=== PATIENT | female | born 1970 | race Caucasian/White ===

== ENCOUNTER 2016-10-12 15:04 | Emergency (ER) ==
[2016-10-12 15:34] LABS: MANUAL DIFF NEEDED? NO; URINE MICRO REVIEW NEEDED? NO; URINE SOURCE CLEAN CATCH
[2016-10-12 15:38] LABS: BASO% 1.5 % (0.0-0.8); BILIRUBIN URINE NEGATIVE (NEGATIVE); BLOOD URINE SMALL (NEGATIVE); COLOR YELLOW; EOS# 0.13 X1000 (0.0-0.7); EOS% 1.5 % (0.0-10.0); GLUCOSE URINE NEGATIVE (NEGATIVE); HEMATOCRIT 38.5 % (37.0-47.0); IMM GRAN# 0.02 X1000 (0.0-0.04); IMM GRAN% 0.2 % (0.0-0.5); LEUKOCYTES URINE LARGE (NEGATIVE); LYMPH# 1.86 X1000 (1.2-3.4); LYMPH% 20.9 % (20.5-51.1); MCH 29.7 PG (27-31); MCHC 33.8 g/dL (33-37); MCV 87.9 FL (81-99); MONO# 0.53 X1000 (0.11-0.59); MPV 10.9 FL (7.4-10.4); NEUT% 69.9 % (42.2-75.2); NITRITE URINE NEGATIVE (NEGATIVE); PH URINE 6.5; PLT 444 X1000 (130-400); PROTEIN URINE NEGATIVE (NEGATIVE); RBC 4.38 XMIL (4.2-5.4); SP GRAVITY URINE 1.005; TURBIDITY URINE HAZY (CLEAR); UROBILINOGEN URINE NORMAL (NORMAL)
[2016-10-12 15:42] LABS: UR EPITHELIAL CELLS <10 /HPF (<10); URINE BACTERIA 4+ /HPF; URINE CULTURE NEEDED? YES; URINE RBC <10 /HPF (<10)
[2016-10-12 16:11] LABS: AGAP 12; ALBUMIN 4.6 g/dL (3.5-5.0); ALKALINE PHOSPHATASE 66 U/L (32-104); AMYLASE 33 U/L (20-200); BUN 12 mg/dL (8-22); CALCIUM 9.3 mg/dL (8.8-10.2); CHLORIDE 102 mmol/L (98-107); COSMO 275; GOT 32 U/L (10-30); GPT 33 U/L (10-36); LIPASE 35 U/L (13-60); POTASSIUM 4.4 mmol/L (3.5-5.1); SODIUM 138 mmol/L (136-145); TCO2 24 mmol/L (25-35); TOTAL BILIRUBIN 0.38 mg/dL (0.20-1.00); TOTAL PROTEIN 7.6 g/dL (6.3-8.3)
[2016-10-12] MEDS ORDERED: ZOFRAN ODT PO ONE (16:23)
[2016-10-12] MEDS ORDERED: XYLOCAINE-MPF 1% INJ ONE (16:23)
[2016-10-12] MEDS ORDERED: ROCEPHIN IM ONE (16:23)
--- NOTE | 2016-10-12 16:24 | PROVIDER DOCUMENTATION ---
HPI-Abdominal Pain/GI Problem - General Chief Complaint: Abdominal Pain Stated Complaint: VOMITING,ABD PAIN Time Seen by Provider: 10/12/16 16:12 Source: patient Allergies/Adverse Reactions: Patient Allergies Allergy/AdvReac Type Severity Reaction Status Date / Time Sulfa (Sulfonamide Allergy Severe HIVES Verified 10/12/16 16:20 Antibiotics) [Sulfa(Sulfonamide Antibiotics)] codeine [Codeine] AdvReac Intermediate NAUSEA/VOMI Verified 10/12/16 16:20 TING Home Medications: Home Medication List Medication Instructions Recorded Confirmed Last Taken Type Ciprofloxacin HCl [Cipro] 500 mg PO BID #14 tablet 10/12/16 Unknown Rx Hydrocodone/Acetaminophen [[place] 1 each PO TID PRN PRN #15 tablet 10/12/16 Unknown Rx 7.5-325 Tablet] Ondansetron Odt [Zofran 4 mg Odt] 4 mg PO Q6H PRN PRN #14 tablet 10/12/16 Unknown Rx Pantoprazole [Protonix] 40 mg PO DAILY@0700 #30 tablet 10/12/16 Unknown Rx - History of Present Illness-ABD Nature of Presenting Problems: 46 Y/ F presents to the ER with the complain of Abd pain X1 week. Pt states symptoms of N/V and states it worsens when she eats. Denies complain of Diarrhea and constipation. Abdominal Pain Onset Location: reports: generalized abdomen Severity in ED: reports: mild Onset/Duration: reports: 1 week ago Timing: reports: still present Associated Symptoms: reports: nausea, vomiting. denies: diarrhea Review of Systems - Adult - REVIEW OF SYSTEMS - ADULT Constitutional: denies: chills, fever Eyes: reports: no symptoms reported Ears, Nose, Mouth & Throat: reports: no symptoms reported Cardiovascular: denies: chest pain, palpitations Respiratory: denies: cough, shortness of breath Gastrointestinal: reports: abdominal pain, nausea, vomiting. denies: constipation Genitourinary: reports: no symptoms reported Musculoskeletal: reports: no symptoms reported Integumentary: reports: no symptoms reported Neurological: reports: no symptoms reported Psychiatric: reports: no symptoms reported Endocrine: reports: no symptoms reported Hematologic/Lymphatic: reports: no symptoms reported Allergic/Immunologic: reports: no symptoms reported All Other Systems: Reviewed and Negative Past History - Adult - PAST MEDICAL HISTORY-ADULT Review of Records: reports: Nursing Assessment Review, Medications Reviewed Major Childhood Illnesses: reports: denies history Cardiovascular: reports: denies history Respiratory: reports: denies history Gastrointestinal: reports: denies history Obstetrical/Gynecological: reports: denies history Genitourinary: reports: denies history Musculoskeletal: reports: denies history Neurological: reports: headaches/migraines Endocrine/Immune: reports: thyroid disorder Other Conditions: reports: denies history - PRIOR SURGERIES/PROCEDURES Surgical/Procedure History: reports: BTL - PRIOR HOSPITALIZATIONS Prior Hospitalizations: reports: for other non-related - IMMUNIZATION STATUS Childhood Immunizations: UTD, See Nurse Assessment Flu Vaccine: See Nurse Assessment - FAMILY HISTORY Family History: reviewed, not pertinent Physical Exam-General - PHYSICAL EXAM-ADULT Initial Vital Signs Reviewed: Yes - CONSTITUTIONAL General Appearance: appears well, alert, no apparent distress - EYES Eyes: PERRL/EOMI, pink conjunctivae - HEAD, EARS, NOSE, MOUTH & THROAT HENMT: normocephalic/atraumatic, moist mucous membranes - NECK Neck: non-tender, full range of motion, supple - RESPIRATORY Respiratory: no pleuratic chest pain, no respiratory distress - CARDIOVASCULAR Cardiovascular: normal peripheral pulses, regular rate, rhythm - GASTROINTESTINAL (ABDOMEN) Abdominal Exam: other (mild super pelvic tenderness, abd pain) Progress - PLAN OF CARE/RESULTS Progress/Plan/Lab Results: Vital Signs - 24 hr 10/12/16 15:18 Temperature 98.3 F Pulse Rate 118 H Respiratory 18 Rate Blood Pressure 154/86 O2 Sat by Pulse 99 Oximetry Orders Category Date Time Status Saline Loc DIRECTED Care 10/12/16 15:26 Active NPO Diet 10/12/16 15:26 Active AMYLASE [CHEM] Stat Lab 10/12/16 15:28 Completed CBC WITH ELECTRONIC DIFF [HEME] Stat Lab 10/12/16 15:28 Completed COMPREHENSIVE METABOLIC PANEL [CHEM] Stat Lab 10/12/16 15:28 Completed LIPASE [CHEM] Stat Lab 10/12/16 15:28 Completed URINALYSIS W/POSS RFLX CULT [URINALYSIS] Stat Lab 10/12/16 15:28 Completed URINE CULTURE [RM] Routine Lab 10/12/16 15:56 Received CefTRIAXONE [Rocephin] Med 10/12/16 16:23 Discontinued 1 gm IM NOW ONE Lidocaine 1% Pf [Xylocaine-Mpf 1%] Med 03/21/17 16:23 Discontinued 5 ml INJ NOW ONE Ondansetron Odt [Zofran Odt] Med 10/12/16 16:23 Discontinued 4 mg PO NOW ONE Laboratory Tests 10/12/16 10/12/16 10/12/16 15:28 15:28 15:28 WBC 8.89 RBC 4.38 Hgb 13.0 Hct 38.5 MCV 87.9 MCH 29.7 MCHC 33.8 RDW Std Deviation 13.1 Plt Count 444 H MPV 10.9 H Immature Gran % (Auto) 0.2 Neut % (Auto) 69.9 Lymph % (Auto) 20.9 Harney % (Auto) 6.0 Eos % (Auto) 1.5 Baso % (Auto) 1.5 H Immature Gran # (Auto) 0.02 Neut # (Auto) 6.22 Lymph # (Auto) 1.86 Harney # (Auto) 0.53 Eos # (Auto) 0.13 Baso # (Auto) 0.13 Sodium 138 Potassium 4.4 Chloride 102 Carbon Dioxide 24 L Anion Gap 12 BUN 12 Creatinine 0.8 Estimated GFR/1.73 m2 > 60 BUN/Creatinine Ratio 15 Glucose 85 Calculated Osmolality 275 Calcium 9.3 Total Bilirubin 0.38 AST 32 H ALT 33 Alkaline Phosphatase 66 Total Protein 7.6 Albumin 4.6 Globulin 3.0 Albumin/Globulin Ratio 1.5 Amylase 33 Lipase 35 Urine Source CLEAN CATCH Urine Color YELLOW Urine Turbidity HAZY Urine pH 6.5 Ur Specific Melvin 1.005 Urine Protein NEGATIVE Ur Glucose (Stick) NEGATIVE Ur Ketones (Stick) NEGATIVE Urine Blood SMALL A Urine Nitrite NEGATIVE Urine Bilirubin NEGATIVE Urobilinogen Dipstick NORMAL Urine Leukocytes LARGE A Urine WBC (Auto) 10-20 A Urine RBC (Auto) <10 U Epithel Cells (Auto) <10 Urine Bacteria (Auto) 4+ Departure - Departure Time of Disposition Order: 16:36 DIAGNOSIS: Abdominal pain, Gastritis Disposition: HOME 01 Certified Medical Emergency: Emergent Condition: Stable Additional Instructions: ED Follow Up Instructions: You have been treated by a care provider in the Emergency Department. These instructions are being provided to you so you can have an understanding of how to care for yourself upon discharge. Upon discharge from the Emergency Department, you are responsible for making arrangements for follow-up care by a physician of your choice. Take all prescribed medications as directed. Return to the Emergency Department immediately for any new or worsening symptoms. You may call the Physician Referral phone number at [phone] to obtain a list of Physicians who are taking new patients. Prescriptions: Ciprofloxacin HCl [Cipro] 500 mg PO BID #14 tablet Hydrocodone/Acetaminophen [[place] 7.5-325 Tablet] 1 each PO TID PRN PRN #15 tablet PRN Reason: Pain Pantoprazole [Protonix] 40 mg PO DAILY@0700 #30 tablet Ondansetron Odt [Zofran 4 mg Odt] 4 mg PO Q6H PRN PRN #14 tablet PRN Reason: Nausea And Vomiting Referrals: Sandra Ken MD [STAFF PHYSICIAN] - Instructions: Abdominal Pain, Adult, [id number], Gastritis, Adult, Easy-to- Read Attestation - Scribe Verification/Attestation Scribe:: Armando Shane Acting as Scribe for:: Dionicio Rodriguez Scribe documention review:: This chart was documented by a scribe and accurately reflects the service the provider performed and the decisions made by the provider. Physician Attestation - Physician Attestation I, the provider, attest to the following statement:: Dionicio Rodriguez Physician documentation Attestation:: This documentation recorded by the scribe accurately reflects the service I personally performed and the decisions made by me.
[2016-10-12 16:32] VITALS: BP 140/94
== END 2016-10-12 17:14 | disposition home or self-care (01) ==
LOC: ED 15:04
DX: K29.70 Gastritis, unspecified, without bleeding (principal); R10.84 Generalized abdominal pain; R11.2 Nausea with vomiting, unspecified; R10.819 Abdominal tenderness, unspecified site
CPT/HCPCS: 80053; 81001; 82150; 83690; 85025; 87088; J0696